=== PATIENT | female | born 1995 ===

== ENCOUNTER 2017-04-14 18:52 | Emergency (ER) | payer BC ==
[2017-04-14 19:04] VITALS: TEMP 99.1
[2017-04-14] MEDS ORDERED: Lidocaine 1% Inj (20ml) IJ ONE (19:28)
[2017-04-14] MEDS ORDERED: Lidocaine 1% Inj (20ml) ONE (19:28)
--- NOTE | 2017-04-14 19:47 | ED PDOC ---
HPI: Female Pain Time Seen by Provider: 04/14/17 19:16 Chief Complaint (Nursing): Abnormal Skin Integrity History Per: Patient History/Exam Limitations: no limitations Onset/Duration Of Symptoms: Hrs Current Symptoms Are (Timing): Still Present Severity: Mild Quality Of Discomfort: Dull Associated Symptoms: denies: Fever, Chills Additional History Per: Patient Additional Complaint(s): Pt. has had cyst on L labia since yesterday, no fevers/chills. Never happened before. PT. is obese. No med hx. Past Medical History Reviewed: Historical Data, Nursing Documentation, Vital Signs Vital Signs: Last Vital Signs Temp 99.1 F 04/14/17 19:02 Pulse Resp BP Pulse Ox - Medical History PMH: No Chronic Diseases Denies: Migraine - Family History Family History: States: Unknown Family Hx - Immunization History Hx Tetanus Toxoid Vaccination: Yes (02/27/2015) - Home Medications Home Medications: Ambulatory Orders Medication Instructions Recorded Nitrofurantoin Macrocrystals 100 mg PO BID #14 cap 08/16/15 [Macrobid] Ibuprofen [Motrin Tab] 600 mg PO Q6 #30 tab 04/14/17 - Allergies Allergies/Adverse Reactions: Allergies Allergy/AdvReac Type Severity Reaction Status Date / Time No Known Allergies Allergy Verified 08/15/15 03:50 Review of Systems ROS Statement: Except As Marked, All Systems Reviewed And Found Negative Physical Exam - Reviewed Nursing Documentation Reviewed: Yes Vital Signs Reviewed: Yes - Physical Exam Appears: Positive for: Well, Non-toxic, No Acute Distress Head Exam: Positive for: ATRAUMATIC, NORMAL INSPECTION, NORMOCEPHALIC Skin: Positive for: Normal Color, Warm, DRY Pelvic Exam: Positive for: External Exam Normal, Other (2x2cm fluctuant abscess on L labia) - ECG Pulse Ox Interpretation: Normal Disposition - Clinical Impression Clinical Impression: Bartholin's cyst - Disposition [facility] Disposition Time: 19:50 Condition: STABLE Prescriptions: Ibuprofen [Motrin Tab] 600 mg PO Q6 #30 tab Instructions: Bartholin Cyst (ED), Incision and Drainage (ED) Forms: [employer] (Brazilian) - Incision & Drainage Of Abscess Anesthesia: Lidocaine 1% Prep Used: Betadine Procedure: Incised W/Scalpel Blade#: (10), Drained Pus
[2017-04-14 20:45] VITALS: BP 137/84; PULSE 85; RESP 18; O2SAT 98
== END 2017-04-14 20:15 | disposition home or self-care (01) ==
LOC: H.ER 18:52
DX: N75.0 Cyst of Bartholin's gland (principal)